=== PATIENT | male | born 1970 | race Caucasian/White ===

== ENCOUNTER 2021-02-11 12:25 | Emergency (ER) | payer SELFPAY ==
[2021-02-11] MEDS ORDERED: dexAMETHasone 10 MG/ML VIAL ONE (16:25)
[2021-02-11] MEDS ORDERED: KETOROLAC 30 MG/ML INJ ONE (16:25)
--- NOTE | 2021-02-11 16:53 | RAD REPORT ---
EXAM DESCRIPTION: RAD - Lumbar Spine 3 Views - 02/11/2021 4:24 pm CLINICAL HISTORY: Back pain FINDINGS: Mild to moderate rotoscoliosis involves the thoracolumbar spine. No fracture or dislocation is seen. Marked spondylosis L2-3 consisting disc space narrowing, subchondral sclerosis and osteophytes. Mild spondylosis involves the remainder of the lumbar spine
--- NOTE | 2021-02-11 16:58 | ER ---
Nurse's Notes [facility] Name: Ludin Harrell Age: 50 yrs Sex: Male : 1970 Arrival Date: 02/11/2021 Time: 12:26 Bed DIS1 Private MD: Diagnosis: Sciatica, unspecified side Presentation: 02/11 13:04 Chief complaint: Patient states: low back pain, radiates to left leg x 4 days. jl7 Coronavirus screen: Client denies travel out of the [place] in the last 14 days. At this time, the client does not indicate any symptoms associated with coronavirus-19. Ebola Screen: No symptoms or risks identified at this time. Initial Sepsis Screen: Does the patient meet any 2 criteria? No. Patient's initial sepsis screen is negative. Does the patient have a suspected source of infection? No. Patient's initial sepsis screen is negative. Risk Assessment: Do you want to hurt yourself or someone else? Patient reports no desire to harm self or others. Onset of symptoms was February 07, 2021. Care prior to arrival: None. 13:04 Method Of Arrival: Wheelchair [facility] 13:04 Acuity: REJI 4 jl7 Historical: - Allergies: 13:06 No Known Allergies; jl7 - PMHx: 13:06 None; jl7 - Immunization history:: Adult Immunizations unknown. - Social history:: Smoking status: Patient reports use of chewing tobacco. Screenin:59 Abuse screen: Denies threats or abuse. Denies injuries from another. Nutritional ld1 screening: No deficits noted. Tuberculosis screening: No symptoms or risk factors identified. Fall Risk None identified. Assessment: 15:59 General: Appears in no apparent distress. comfortable, Behavior is calm, cooperative, ld1 appropriate for age. Pain: Complains of pain in back and left leg Pain radiates to left leg Pain currently is 10 out of 10 on a pain scale. Quality of pain is described as sharp, Pain began 2-3 days ago. Is continuous. Neuro: Level of Consciousness is awake, alert, obeys commands, Oriented to person, place, time, situation, Appropriate for age. Cardiovascular: Capillary refill < 3 seconds Patient's skin is warm and dry. Respiratory: Airway is patent Respiratory effort is even, unlabored, Respiratory pattern is regular, symmetrical. GI: Abdomen is flat, non-distended. : No signs and/or symptoms were reported regarding the genitourinary system. EENT: No signs and/or symptoms were reported regarding the EENT system. Derm: No signs and/or symptoms reported regarding the dermatologic system. Musculoskeletal: No signs and/or symptoms reported regarding the musculoskeletal system. 16:56 Reassessment: No changes from previously documented assessment. Patient and/or family ld1 updated on plan of care and expected duration. Pain level reassessed. Patient is alert, oriented x 3, equal unlabored respirations, skin warm/dry/pink. Pt waiting on results. Says he is ready to go now. He will stop by registration to receive online access for results. Waiting on discharge paperwork. Vital Signs: 13:04 BP 98 / 68; Pulse 85; Resp 17; Temp 97.6; Pulse Ox 98% ; Weight 81.65 kg; Height 6 ft. jl7 (182.88 cm); Pain 10/10; 15:59 BP 112 / 66; Pulse 82; Resp 18; Pulse Ox 100% on R/A; Weight 81.65 kg; Pain 10/10; ld1 15:59 Body Mass Index 24.41 (81.65 kg, 182.88 cm) ld1 ED Course: 12:26 Patient arrived in ED. am2 13:05 Triage completed. jl7 13:06 Arm band placed on right wrist. jl7 13:06 Patient placed in waiting room, Patient notified of wait time. jl7 14:44 Lukasz Cannon PA is [facility] 14:44 Tuan Conrad MD is Attending Physician. [facility] 15:58 Nadia Hernandes, MEL is Primary Nurse. ld1 15:59 Patient has correct armband on for positive identification. Call light in reach. Pulse ld1 ox on. NIBP on. 15:59 No provider procedures requiring assistance completed. ld1 16:58 Patient did not have IV access during this emergency room visit. ld1 Administered Medications: 16:14 Drug: Decadron (dexamethasone) 10 mg Route: IM; Site: right deltoid; ld1 16:30 Follow up: Response: No adverse reaction ld1 16:14 Drug: Ketorolac 30 mg Route: IM; Site: left deltoid; ld1 16:36 Follow up: Response: No adverse reaction ld1 Outcome: 16:57 Discharge ordered by . see 16:57 Discharged to home ambulatory. ld1 16:57 Condition: stable 16:57 Discharge instructions given to patient, Instructed on discharge instructions, follow up and referral plans. medication usage, Demonstrated understanding of instructions, follow-up care, medications. 17:04 Patient left the ED. ld1 Signatures: Lukasz Cannon PA PA jmm Leal, Jahala RN RN jl7 Sumi Norris Lauren, RN RN ld1
--- NOTE | 2021-02-11 16:58 | EDPHYS ---
Physician Documentation [facility] Name: Ludin Harrell Age: 50 yrs Sex: Male : 1970 Arrival Date: 02/11/2021 Time: 12:26 Bed DIS1 Private MD: ED Physician Tuan Conrad HPI: 02/11 16:12 This 50 yrs old Male presents to ER via Wheelchair with complaints of Back jmm Pain. 16:12 The patient presents with pain that is acute. Onset: The symptoms/episode jmm began/occurred gradually, 4 day(s) ago. The pain radiates to the right leg and left leg. Associated signs and symptoms: Pertinent negatives: abdominal pain, chest pain, dysuria, fever, hematuria, incontinence. Modifying factors: The patient symptoms are alleviated by remaining still, specific position, the patient symptoms are aggravated by any movement, movement. The patient has experienced similar episodes in the past, but today's symptoms are worse. Historical: - Allergies: 13:06 No Known Allergies; jl7 - PMHx: 13:06 None; jl7 - Immunization history:: Adult Immunizations unknown. - Social history:: Smoking status: Patient reports use of chewing tobacco. ROS: 16:12 Constitutional: Negative for fever, chills, and weight loss, Cardiovascular: Negative jmm for chest pain, palpitations, and edema, Respiratory: Negative for shortness of breath, cough, wheezing, and pleuritic chest pain. 16:12 Back: Positive for pain with movement. 16:12 All other systems are negative. Exam: 16:12 Constitutional: This is a well developed, well nourished patient who is awake, alert, jmm and in no acute distress. Head/Face: atraumatic. Eyes: EOMI, no conjunctival erythema appreciated ENT: Moist Mucus Membranes Neck: Trachea midline, Supple Chest/axilla: Normal chest wall appearance and motion. Cardiovascular: Regular rate and rhythm. No edema appreciated Respiratory: Normal respirations, no respiratory distress appreciated Abdomen/GI: Non distended, soft 16:12 Back: muscle spasm, is appreciated in the left low back. 16:12 Musculoskeletal/extremity: ROM: intact in all extremities. 16:12 Skin: Appearance: Color: normal in color. 16:12 Neuro: Orientation: is normal, Mentation: is normal, Memory: is normal. 16:12 Psych: Behavior/mood is cooperative. Vital Signs: 13:04 BP 98 / 68; Pulse 85; Resp 17; Temp 97.6; Pulse Ox 98% ; Weight 81.65 kg; Height 6 ft. jl7 (182.88 cm); Pain 10/10; 15:59 BP 112 / 66; Pulse 82; Resp 18; Pulse Ox 100% on R/A; Weight 81.65 kg; Pain 10/10; ld1 15:59 Body Mass Index 24.41 (81.65 kg, 182.88 cm) ld1 MDM: 16:01 Patient medically screened. [facility] 16:56 Data reviewed: vital signs, nurses notes. Counseling: I had a detailed discussion with see the patient and/or guardian regarding: the historical points, exam findings, and any diagnostic results supporting the discharge/admit diagnosis, the need for outpatient follow up, to return to the emergency department if symptoms worsen or persist or if there are any questions or concerns that arise at home. 02/11 16:02 Order name: Lumbar Spine (3 Views) XRAY [facility] 02/11 16:54 Order name: RAD; Complete Time: 16:58 EDMS Administered Medications: 16:14 Drug: Decadron (dexamethasone) 10 mg Route: IM; Site: right deltoid; ld1 16:30 Follow up: Response: No adverse reaction ld1 16:14 Drug: Ketorolac 30 mg Route: IM; Site: left deltoid; ld1 16:36 Follow up: Response: No adverse reaction ld1 Disposition: 17:42 Co-signature as Attending Physician, Tuan Conrad MD. rn Disposition: 02/11/21 16:57 Discharged to Home. Impression: Sciatica, unspecified side. - Condition is Stable. - Discharge Instructions: Sciatica, Back Exercises, [id number]. - Prescriptions for orphenadrine citrate 100 mg Oral Tablet Sustained Release - take 1 tablet by ORAL route 2 times per day As needed; 20 tablet. - Medication Reconciliation Form, Thank You Letter, Antibiotic Education, Prescription Opioid Use form. - Follow up: Private Physician; When: 2 - 3 days; Reason: Recheck today's complaints, Continuance of care, Re-evaluation by your physician. Signatures: Dispatcher [employer] EDMS Lukasz Cannon PA PA jmm Nieto, Roman, MD MD rn Santy Newsome RN RN jl7 Nadia Hernandes RN RN ld1 Corrections: (The following items were deleted from the chart) 17:04 16:57 02/11/2021 16:57 Discharged to Home. Impression: Sciatica, unspecified side. ld1 Condition is Stable. Forms are Medication Reconciliation Form, Thank You Letter, Antibiotic Education, Prescription Opioid Use. Follow up: Private Physician; When: 2 - 3 days; Reason: Recheck today's complaints, Continuance of care, Re-evaluation by your physician. see
[2021-02-11 17:32] VITALS: TEMP 97.6
[2021-02-11 17:33] VITALS: BP 112/66; O2SAT 100
== END 2021-02-11 17:04 | disposition home or self-care (01) ==
LOC: ER 12:25
DX: M54.30 Sciatica, unspecified side (principal); F17.220 Nicotine dependence, chewing tobacco, uncomplicated
CPT/HCPCS: 72100; 96372; 99283; J1100